=== PATIENT | male | born 1960 | race Caucasian/White ===

== ENCOUNTER 2018-11-02 11:00 | Outpatient (CLI) | payer OTHER | END 2018-11-02 17:00 | disposition home or self-care (01) | LOC: MRI 11:00 | DX: M25.562 Pain in left knee (principal); M25.561 Pain in right knee | CPT/HCPCS: 73721 ==

== ENCOUNTER 2019-01-19 08:10 | Outpatient (CLI) | payer OTHER | END 2019-01-19 08:17 | disposition home or self-care (01) | LOC: MRI 08:10 | DX: M25.561 Pain in right knee (principal) | CPT/HCPCS: 73721 ==

== ENCOUNTER 2019-06-22 07:35 | Outpatient (CLI) | payer OTHER | END 2019-06-22 07:37 | disposition home or self-care (01) | LOC: TOM 07:35 | DX: R31.21 Asymptomatic microscopic hematuria (principal) ==

== ENCOUNTER 2020-02-03 10:45 | Inpatient (IN) | payer OTHER ==
[~2020-02-03] VITALS: Ht 170.2 cm; Wt 124.7 kg
[2020-02-03] MEDS ORDERED: METFORMIN HCL750 MG PO (12:47)
[2020-02-03] MEDS ORDERED: FOSINOPRIL SODI40 MG PO (12:47)
[2020-02-03] MEDS ORDERED: LIPITOR20 MG PO (12:47)
[2020-02-03] MEDS ORDERED: NORVASC5 MG PO (12:48)
[2020-02-03] MEDS ORDERED: ASPIR 8181 MG PO (12:48)
[2020-02-03] MEDS ORDERED: DOXAZOSIN MESYLA1 MG PO (12:48)
[2020-02-09] MEDS ORDERED: FINASTERIDE5 MG PO (09:49)
[2020-02-09] MEDS ORDERED: ANORO ELLIPTA1 EACH IH (09:49)
[2020-02-09] MEDS ORDERED: DOXAZOSIN MESYLA2 MG PO (09:50)
== END 2020-02-11 10:00 | disposition home or self-care (01) | DRG 667 ==
LOC: ADM 10:45 → O/R 02-09 05:31 → SURH 02-09 05:31 → ADM 02-09 10:45 → EDSTATUS 02-09 10:45 → SURH 02-09 11:21
PROVIDERS: ADMIT Urology; ATTEND Urology
PROC: 0TCB8ZZ Extirpation of Matter from Bladder, Via Natural or Artificial Opening Endoscopic (ICD-10-PCS; 2020-02-09)
PROC: 0VT08ZZ Resection of Prostate, Via Natural or Artificial Opening Endoscopic (ICD-10-PCS; principal; 2020-02-09 08:30)
DX: N21.0 Calculus in bladder (principal); N40.1 Benign prostatic hyperplasia with lower urinary tract symptoms

== ENCOUNTER 2020-11-30 11:46 | Outpatient (CLI) | payer OTHER ==
[~2020-11-30 11:46] MED LIST: ANORO ELLIPTA1 EACH IH; ASPIR 8181 MG PO; DOXAZOSIN MESYLA1 MG PO; DOXAZOSIN MESYLA2 MG PO; FINASTERIDE5 MG PO; FOSINOPRIL SODI40 MG PO; LIPITOR20 MG PO; METFORMIN HCL750 MG PO; NORVASC5 MG PO
== END 2020-11-30 11:55 | disposition home or self-care (01) ==
LOC: LAB 11:46
PROVIDERS: ATTEND Urology
DX: I11.0 Hypertensive heart disease with heart failure (principal)

== ENCOUNTER 2020-12-06 09:33 | Day surgery (SDC) | payer OTHER | END 2020-12-06 18:30 | disposition home or self-care (01) | LOC: CIR.AMB 09:33 | PROVIDERS: ATTEND Urology | DX: N32.89 Other specified disorders of bladder (principal); Z20.822 Contact with and (suspected) exposure to COVID-19 ==